=== PATIENT | female | born 1945 | race Caucasian/White ===

== ENCOUNTER → 2018-01-26 | Outpatient (CLI) | payer OTHER ==
[~2018-01-26] MED LIST: ASPIR 8181 M1 PO; BENADRYL25 MG PO; CALCIUM; CALCIUM 500 MG1 EACH PO; CALCIUM500 M1 PO; CHEWABLE-VITE1 EAC1 PO; CIPRO250 M1 PO; CIPRO500 MG PO; CIPROFLOXACIN500 M1 PO; KEFLEX500 MG PO; LEVOTHYROXIN0.075 MG PO; MEDROLDOSEPACK PO; MULTIVITAMINS1 EAC7; MULTIVITAMINS1 EAC8 PO; NORCO 7.5-3251 EACH PO; OXYBUTYNIN 5 MG5 M2 PO; PEPCID20 MG PO; SYNTHROID75 MCG PO; UNICOMPLEX M TA1 TA1; UNICOMPLEX M TA1 TA1 PO
== END ==
LOC: M.RAD 16:30
DX: R05 Cough (principal)

== ENCOUNTER → 2018-06-01 | Outpatient (CLI) | payer OTHER | LOC: M.RAD 15:17 | DX: S46.012A Strain of muscle(s) and tendon(s) of the rotator cuff of left shoulder, initial encounter (principal); X58.XXXA Exposure to other specified factors, initial encounter; Y93.89 Activity, other specified; Y92.89 Other specified places as the place of occurrence of the external cause; Y99.8 Other external cause status ==

== ENCOUNTER → 2018-08-22 | Outpatient (CLI) | payer OTHER | LOC: M.RAD 14:21 | DX: Z12.31 Encounter for screening mammogram for malignant neoplasm of breast (principal); E03.9 Hypothyroidism, unspecified; Z90.49 Acquired absence of other specified parts of digestive tract; Z90.710 Acquired absence of both cervix and uterus ==